=== PATIENT | female | born 1990 | race Caucasian/White ===

== ENCOUNTER 2017-01-30 15:00 | Emergency (ER) | payer BC, MEDICAID ==
--- NOTE | 2017-01-30 15:22 | Emergency Department Record ---
History of Present Illness - General Chief complaint: ENT Stated complaint: EAR PAIN Source: Patient Mode of Arrival: Ambulatory Limitations: No limitations - History of Present Illness Initial comments: 26 yo female presents to ED with a CC of right ear pain that began 4 days ago with a mild amount of discharge present from the ear. Patient denies fevers, chills, abdominal pain, or cough symptoms. Patient reports a history of previous ear infections. MD complaint: Ear pain Onset/Timin -: Days(s) Location: R ear Severity: Moderate Severity scale (1-10): 9 Quality: Burning, Sharp, Stabbing Consistency: Constant Improves with: None Worsens with: Swallowing Context- Ear: Other - Related Data Previous Rx's Medication Instructions Recorded Neomycin/Polymyxin B Sulf/Hc 10 ml OT QID #1 bottle 01/30/17 [[id number]-[id number]-Mz Ear Susp] Allergies Allergy/AdvReac Type Severity Reaction Status Date / Time azithromycin Allergy Intermediate VOMITING Verified 01/30/17 15:08 [From Zithromax Z-Ector] erythromycin base Allergy Intermediate NAUSEA AND Verified 01/30/17 15:08 [Erythromycin Base] VOMITING hydrocodone bitartrate Allergy Intermediate NAUSEA AND Verified 01/30/17 15:08 [From Vicodin] VOMITING Travel Screening - Travel/Exposure Within Last 30 Days Have you traveled within the last 30 days?: No - Travel/Exposure Within Last Year Have you traveled outside the [place] in the last year?: No - Additonal Travel Details Have you been exposed to anyone with a communicable illness?: No - Travel Symptoms Symptom Screening: None Review of Systems Constitutional: Denies: Chills, Fever, Malaise, Night sweats Eyes: Denies: Eye discharge, Eye pain ENT: Reports: Ear pain. Denies: Congestion, Epistaxis Respiratory: Denies: Cough, Dyspnea Cardiovascular: Denies: Chest pain, Dyspnea on exertion Endocrine: Denies: Fatigue, Heat or cold intolerance Gastrointestinal: Denies: Abdominal pain, Nausea, Vomiting Genitourinary: Denies: Dysuria, Frequency, Incontinence, Retention Musculoskeletal: Denies: Arthralgia, Back pain Skin: Denies: Bruising, Change in color, Change in hair/nails Neurological: Denies: Abnormal gait, Confusion, Headache, Seizure Psychiatric: Denies: Anxiety Hematological/Lymphatic: Denies: Anemia, Blood Clots Past Medical History - SOCIAL HISTORY Smoking Status: Light tobacco smoker (<10/day) Alcohol Use: None Drug Use: None - RESPIRATORY Hx Respiratory Disorders: Yes Hx Bronchitis: Yes - CARDIOVASCULAR Hx Cardio Disorders: No - NEURO Hx Neuro Disorders: No - GI Hx GI Disorders: No - Hx Genitourinary Disorders: No - ENDOCRINE Hx Endocrine Disorders: No - MUSCULOSKELETAL Hx Musculoskeletal Disorders: No - PSYCH Hx Psych Problems: No - HEMATOLOGY/ONCOLOGY Hx Hematology/Oncology Disorders: No Family Medical History Any Significant Family History?: Yes Hx Diabetes: Grandparents Hx HTN: Grandparents Physical Exam - General General Appearance: Alert, Oriented x3, Cooperative, No acute distress Limitations: No limitations - Head Head exam: Atraumatic, Normocephalic, Normal inspection Head exam detail: negative: Abrasion, Contusion, Tompkins's sign, General tenderness, Hematoma, Laceration - Eye Eye exam: Normal appearance. negative: Conjunctival injection, Periorbital swelling, Periorbital tenderness, Scleral icterus - ENT Ear exam: External canal tenderness, Other (erythema and mild swelling to the external canal right). negative: Auricular hematoma, Auricular trauma Nasal Exam: negative: Active bleeding, Discharge, Dried blood, Foreign body Mouth exam: negative: Drooling, Laceration, Muffled voice, Tongue elevation - Neck Neck exam: Normal inspection. negative: Meningismus, Tenderness - Respiratory Respiratory exam: Normal lung sounds bilaterally. negative: Rales, Respiratory distress, Rhonchi, Stridor - Cardiovascular Cardiovascular Exam: Regular rate, Normal rhythm, Normal heart sounds - GI/Abdominal GI/Abdominal exam: Soft. negative: Rebound, Rigid, Tenderness - Rectal Rectal exam: Deferred - exam: Deferred - Extremities Extremities exam: Normal inspection. negative: Calf tenderness, Pedal edema, Tenderness - Back Back exam: Reports: Normal inspection. Denies: CVA tenderness (R), CVA tenderness (L) - Neurological Neurological exam: Alert, Normal gait, Oriented X3 - Psychiatric Psychiatric exam: Normal affect, Normal mood - Skin Skin exam: Normal color. negative: Abrasion Type of lesion: negative: abrasion Course Vital Signs 01/30/17 15:09 Temperature 97.7 F Pulse Rate 108 H Respiratory 20 Rate Blood Pressure 124/69 Pulse Ox 100 - Reevaluation(s) Reevaluation #1: 01/30/17 15:20 Symptoms appear c/w otitis externa, will initiate polymyxin for her ear pain symptoms. Patient appears stable for discharge at this time. Disposition Disposition: Discharge Clinical Impression: Otitis externa Qualifiers: Otitis externa type: unspecified type Laterality: right Chronicity: acute Qualified Code(s): H60.501 - Unspecified acute noninfective otitis externa, right ear Disposition: Home, Self-Care Condition: (2) Stable Instructions: Otitis Externa (ED) Additional Instructions: Return to ED if your symptoms worsen or if you have any concerns. Polymyxin ear drops as directed. Follow-up with your family doctor in 3-5 days as directed. Prescriptions: Neomycin/Polymyxin B Sulf/Hc [Qacvtens-[id number]-Aa Ear Susp] 10 ml OT QID #1 bottle Forms: Patient Portal Access Time of Disposition: 15:22
== END 2017-01-30 15:33 | disposition home or self-care (01) ==
LOC: ER 15:00
DX: H60.501 Unspecified acute noninfective otitis externa, right ear (principal)
CPT/HCPCS: 99282

== ENCOUNTER 2017-04-13 19:43 | Emergency (ER) | payer MEDICAID ==
[2017-04-13] MEDS ORDERED: 0.9 % SODIUM CHLORIDE 1,000 ML BAG IV ONE (19:56)
[2017-04-13] MEDS ORDERED: CEFTRIAXONE SODIUM 1 GM in 0.9 % SODIUM CHLORIDE 100ML 100 ML IVPB ONE (20:00)
[2017-04-13] MEDS ORDERED: ACETAMINOPHEN 325 MG TAB PO ONE (20:00)
--- NOTE | 2017-04-13 20:06 | Emergency Department Record ---
History of Present Illness - General Chief Complaint: Ankle/Foot Injury Stated Complaint: PAIN IN FOOT AND LT LEG Time Seen by Provider: 04/13/17 19:51 Source: Patient Mode of Arrival: Ambulatory Limitations: No limitations - History of Present Illness Initial Comments: The patient is here due to L foot pain for 2 days. She recently just over a week ago had been to [facility] due to developing an abscess to the L great toe. She did have it I and D'd and originally was placed on Bactrim. She was later called and was told it was Group A Strep and had her Abx changed to Clindamycin which she has taken for almost 10 days. The toe got better and then 2 days ago the pain in the toe came back. Now she is having pain radiating up the foot to the ankle. She denies any trauma, injury, fever, CP, SOB, chills, or any new issues. MD Complaint: Other Onset/Timin -: Days(s) Type of Injury: Other Place: Home Severity: Mild Severity scale (1-10): 6 Improves With: NSAID, Rest Worsens With: Palpation, Weight bearing - Related Data Home Medications Medication Instructions Recorded Confirmed Last Taken Clindamycin HCl [Cleocin HCl] 04/13/17 Unknown Previous Rx's Medication Instructions Recorded Cephalexin [Keflex] 500 mg PO QID #28 cap 04/13/17 Allergies Allergy/AdvReac Type Severity Reaction Status Date / Time azithromycin Allergy Intermediate VOMITING Verified 01/30/17 15:08 [From Zithromax Z-Ector] erythromycin base Allergy Intermediate NAUSEA AND Verified 01/30/17 15:08 [Erythromycin Base] VOMITING hydrocodone bitartrate Allergy Intermediate NAUSEA AND Verified 01/30/17 15:08 [From Vicodin] VOMITING Travel Screening - Travel/Exposure Within Last 30 Days Have you traveled within the last 30 days?: No - Travel/Exposure Within Last Year Have you traveled outside the [place] in the last year?: No - Additonal Travel Details Have you been exposed to anyone with a communicable illness?: No - Travel Symptoms Symptom Screening: None Review of Systems Constitutional: Denies: Chills, Fever Eyes: Denies: Eye discharge ENT: Denies: Congestion Respiratory: Denies: Cough, Dyspnea Past Medical History - SOCIAL HISTORY Smoking Status: Light tobacco smoker (<10/day) Alcohol Use: None Drug Use: None - RESPIRATORY Hx Respiratory Disorders: Yes Hx Bronchitis: Yes - CARDIOVASCULAR Hx Cardio Disorders: No - NEURO Hx Neuro Disorders: No - GI Hx GI Disorders: No - Hx Genitourinary Disorders: No - ENDOCRINE Hx Endocrine Disorders: No - MUSCULOSKELETAL Hx Musculoskeletal Disorders: No - PSYCH Hx Psych Problems: No - HEMATOLOGY/ONCOLOGY Hx Hematology/Oncology Disorders: No Family Medical History Any Significant Family History?: No Hx Diabetes: Grandparents Hx HTN: Grandparents Physical Exam - General General Appearance: Alert, Oriented x3, Cooperative, No acute distress - Head Head exam: Atraumatic, Normocephalic, Normal inspection - Eye Eye exam: Normal appearance, PERRL - Neck Neck exam: Normal inspection - Respiratory Respiratory exam: Normal lung sounds bilaterally. negative: Respiratory distress - Cardiovascular Cardiovascular Exam: Regular rate, Normal rhythm, Normal heart sounds - Extremities Extremities exam: Normal capillary refill, Tenderness (only to the foot. There is no calf, posterior knee or thigh tenderness.). negative: Normal inspection ( There is a dried healing blister to the distal L 1st toe. There is no swelling or erythema to the foot, ankle or leg but mild tenderness dorsally to the foot. The L foot is NVI with normal pulses.), Calf tenderness, Joint swelling Course Vital Signs 04/13/17 19:50 Temperature 98.8 F Pulse Rate [ 119 H Pulse Ox Probe] Respiratory 20 Rate Blood Pressure 138/69 [Left Arm] Pulse Ox 98 - Reevaluation(s) Reevaluation #1: The patient is doing very well at this time. Her foot appears the same with no erythema, swelling, or warmth but there is tenderness dorsally. There is no calf or thigh tenderness and no signs of any DVT. On recheck her temp is normal at 98.9 and her xray is normal also. I did discuss the need to stop the Clindamycin and start Keflex. She is to return to ER at 9am tomorrow for repeat IV Abx and possibly a leg doppler test. 04/13/17 21:12 Medical Decision Making - Data Complexity MDM Data: Labs Ordered and/or Reviewed, X-Ray Ordered and/or Reviewed - Lab Data Result diagrams: 04/13/17 20:15 04/13/17 20:15 - Radiology Data Radiology results: Report reviewed (L Foot: Neg per Rad.), Image reviewed (L Foot: Neg) Disposition Disposition: Discharge Clinical Impression: Foot pain, left Disposition: Home, Self-Care Condition: (1) Good Instructions: Arthralgia (ED) Additional Instructions: Please ice and elevate the L foot tonight and use Tylenol or Motrin for pain. Please return to the ER at 9am for recheck and repeat Abx and possibly a doppler test. Please stop the Clindamycin and start the Keflex tomorrow. Prescriptions: Cephalexin [Keflex] 500 mg PO QID #28 cap Forms: Patient Portal Access Time of Disposition: 21:20
[2017-04-13 20:22] LABS: BASO % 0.8 % (0-6); EOS % 5.9 % (0-6); GRAN % 54.9 % (47-80); HEMOGLOBIN 14.8 gm/dl (11.6-16.0); LYMPH % 32.7 % (16-45); MEAN CELL VOLUME 86.9 fl (81-97); MEAN CORPUSCULAR HEMOGLOBIN 29.9 pg (27-33); MEAN CORPUSCULAR HGB CONC 34.4 g/dl (32-36); MEAN PLATELET VOLUME 9.1 fl (7.4-10.4); MONO % 5.7 % (0-9); PLATELET COUNT 335 K/uL (130-400); RED BLOOD COUNT 4.95 M/uL (3.80-5.40); RED CELL DISTRIBUTION WIDTH 12.2 % (11.5-14.5); WHITE BLOOD COUNT W/O DIFF 9.4 K/uL (4.2-12.2)
[2017-04-13 20:35] LABS: ANION GAP 10.9 (7-16); BLOOD UREA NITROGEN 11 mg/dL (7-17); CARBON DIOXIDE 25.1 mmol/L (22-30); CREATININE 0.8 mg/dL (0.52-1.04); EST GLOMERULAR FILTRATION RATE > 60 ml/min; GLUCOSE,RANDOM 125 mg/dL (70-110)
[2017-04-13 20:37] LABS: C-REACTIVE PROTEIN < 0.5 mg/dL (0.0-0.9)
[2017-04-13] MEDS ORDERED: ONDANSETRON HCL IV 4 MG/2 ML VIAL IVP ONE (21:09)
--- NOTE | 2017-04-15 10:52 | RADIOLOGY REPORT ---
EXAM: FOOT, LEFT 3 VIEWS HISTORY: PATIENT HAS PAIN TO THE LEFT FIRST DIGIT. TECHNIQUE: Three views of the left foot are provided without comparison study. FINDINGS: There is no radiographic evidence of a fracture or dislocation of the left foot. Mild soft tissue swelling is noted of the first digit. No radiopaque foreign bodies are identified. IMPRESSION: MILD SOFT TISSUE SWELLING IS NOTED OF THE LEFT FIRST DIGIT WITHOUT RADIOGRAPHIC EVIDENCE OF A FRACTURE OR DISLOCATION OF THE LEFT FOOT. JOB NUMBER: [id number] MTDD
== END 2017-04-13 21:30 | disposition home or self-care (01) ==
LOC: ER 19:43
DX: M79.672 Pain in left foot (principal)
CPT/HCPCS: 99284 ×2; 96374; 96375; 85025; 86140; 80048; 73630; J2405; J7030

== ENCOUNTER 2017-04-14 08:36 | Emergency (ER) | payer MEDICAID ==
[2017-04-14] MEDS ORDERED: CLINDAMYCIN 600MG/4ML VIAL 600 MG in 0.9 % SODIUM CHLORIDE 100ML 100 ML IV ONE (08:49)
--- NOTE | 2017-04-14 08:55 | Emergency Department Record ---
History of Present Illness - General Chief Complaint: Wound, check Stated Complaint: RECHECK Time Seen by Provider: 04/14/17 08:49 Source: Patient Mode of arrival: Ambulatory Limitations: No limitations - History of Present Illness Initial Comments: 26 yo female returns to ED fore repeat antibiotics after being seen last night. Patient was recently treated for a left great toe infection approximately 10 days ago, stopped Clindamycin 1-2 days ago when her pain symptoms returned. Patient reports that her toe pain is extending up the lower extremity posteriorly. Patient denies fevers, chills, or increased redness to the left great toe. Patient denies health problems at her baseline. MD Complaint: Needs IV antibiotics Onset/Timin -: Week(s) Initial Visit For: Abscess Returns Today for: Needs IV antibiotics, Wound recheck Symptoms Since Prior Visit: No new symptoms Associated Symptoms: None - Related Data Home Medications Medication Instructions Recorded Confirmed Last Taken Clindamycin HCl [Cleocin HCl] 1 tab PO TID 04/13/17 04/14/17 04/13/17 Previous Rx's Medication Instructions Recorded Cephalexin [Keflex] 500 mg PO QID #28 cap 04/13/17 Allergies Allergy/AdvReac Type Severity Reaction Status Date / Time azithromycin Allergy Intermediate VOMITING Verified 01/30/17 15:08 [From Zithromax Z-Ector] erythromycin base Allergy Intermediate NAUSEA AND Verified 01/30/17 15:08 [Erythromycin Base] VOMITING hydrocodone bitartrate Allergy Intermediate NAUSEA AND Verified 01/30/17 15:08 [From Vicodin] VOMITING Travel Screening - Travel/Exposure Within Last 30 Days Have you traveled within the last 30 days?: No - Travel/Exposure Within Last Year Have you traveled outside the [place] in the last year?: No - Additonal Travel Details Have you been exposed to anyone with a communicable illness?: No - Travel Symptoms Symptom Screening: None Review of Systems Constitutional: Denies: Chills, Fever, Malaise, Night sweats Eyes: Denies: Eye discharge, Eye pain ENT: Denies: Congestion, Ear pain, Epistaxis Respiratory: Denies: Cough, Dyspnea Cardiovascular: Denies: Chest pain, Dyspnea on exertion Endocrine: Denies: Fatigue, Heat or cold intolerance Gastrointestinal: Denies: Abdominal pain, Nausea, Vomiting Genitourinary: Denies: Incontinence, Retention Musculoskeletal: Reports: Arthralgia. Denies: Back pain, Gout Skin: Reports: Other (Wound to the left great toe). Denies: Bruising, Change in color Neurological: Denies: Abnormal gait, Confusion, Headache Psychiatric: Denies: Anxiety Hematological/Lymphatic: Denies: Anemia, Blood Clots Past Medical History - SOCIAL HISTORY Smoking Status: Light tobacco smoker (<10/day) Alcohol Use: None Drug Use: None - RESPIRATORY Hx Respiratory Disorders: Yes Hx Bronchitis: Yes - CARDIOVASCULAR Hx Cardio Disorders: No - NEURO Hx Neuro Disorders: No - GI Hx GI Disorders: No - Hx Genitourinary Disorders: No - ENDOCRINE Hx Endocrine Disorders: No - MUSCULOSKELETAL Hx Musculoskeletal Disorders: No - PSYCH Hx Psych Problems: No - HEMATOLOGY/ONCOLOGY Hx Hematology/Oncology Disorders: No Family Medical History Any Significant Family History?: No Hx Diabetes: Grandparents Hx HTN: Grandparents Physical Exam - General General Appearance: Alert, Oriented x3, Cooperative, No acute distress Limitations: No limitations - Head Head exam: Atraumatic, Normocephalic, Normal inspection Head exam detail: negative: Abrasion, Contusion, Tompkins's sign, General tenderness, Hematoma, Laceration - Eye Eye exam: Normal appearance. negative: Conjunctival injection, Periorbital swelling, Periorbital tenderness, Scleral icterus - ENT Ear exam: negative: Auricular hematoma, Auricular trauma Nasal Exam: Normal inspection. negative: Discharge, Dried blood, Foreign body Mouth exam: negative: Drooling, Laceration, Muffled voice, Tongue elevation - Neck Neck exam: Normal inspection. negative: Meningismus, Tenderness - Respiratory Respiratory exam: Normal lung sounds bilaterally. negative: Respiratory distress, Rhonchi, Stridor, Wheezes - Cardiovascular Cardiovascular Exam: Regular rate, Normal rhythm, Normal heart sounds - GI/Abdominal GI/Abdominal exam: Soft. negative: Rebound, Rigid, Tenderness - Rectal Rectal exam: Deferred - exam: Deferred - Extremities Extremities exam: Tenderness, Other (Healing wound to the left great toe, mild erythema to the toe nail proximally, no abscess present on examination). negative: Calf tenderness, Pedal edema - Back Back exam: Reports: Normal inspection. Denies: CVA tenderness (R), CVA tenderness (L) - Neurological Neurological exam: Alert, Normal gait, Oriented X3 - Psychiatric Psychiatric exam: Normal affect - Skin Skin exam: Normal color. negative: Abrasion Type of lesion: negative: abrasion Course Vital Signs 04/14/17 04/14/17 08:38 08:44 Temperature 99.0 F Pulse Rate [ 97 H Pulse Ox Probe] Respiratory 16 Rate Blood Pressure 109/64 [Right Arm] Pulse Ox 98 - Reevaluation(s) Reevaluation #1: 04/14/17 08:56 Labs reviewed from 04/12 and are grossly unremarkable for an acute process. Repeat IV antibiotics and lower extremity Doppler ordered to exclude lower extremity thrombus. Reevaluation #2: 04/14/17 09:58 Repeat antibiotics have infused, and lower extremity Doppler is negative. Patient appears stable for discharge at this time. Keflex we sent to pharmacy last night for the patient to fill this morning as well. Patient was updated on all results and appears stable for discharge at this time. Disposition Disposition: Discharge Clinical Impression: Cellulitis of great toe of left foot Disposition: Home, Self-Care Condition: (2) Stable Instructions: Cellulitis (ED) Additional Instructions: Return to ED if your symptoms worsen or if you have any concerns. Follow-up with your family doctor in 3-5 days as directed. Keflex as previously prescribed. Forms: Patient Portal Access Time of Disposition: 10:00
--- NOTE | 2017-04-15 11:07 | US VENOUS DOPPLER REPORT ---
EXAM: ULTRASOUND VENOUS DOPPLER LOWER EXT LT HISTORY: LEFT LOWER EXTREMITY PAIN FOR THREE WEEKS. TECHNIQUE: Real-time hughes-scale sonographic imaging of the left lower extremity deep venous system was performed with duplex Doppler and spectral waveform analysis. COMPARISON: None. FINDINGS: There is normal color-flow and compressibility in the following vessels; left greater saphenous vein, left common femoral vein, left profunda femoral vein, left superficial femoral vein, left popliteal vein, left peroneal vein, left anterior tibial vein, left posterior tibial vein. Normal respiratory phasicity in the left common femoral vein. IMPRESSION: NO EVIDENCE OF LEFT LOWER EXTREMITY DVT. JOB NUMBER: [id number] MTDD
== END 2017-04-14 10:14 | disposition home or self-care (01) ==
LOC: ER 08:36
DX: L03.032 Cellulitis of left toe (principal)
CPT/HCPCS: 96365; 99283

== ENCOUNTER 2017-07-30 18:05 | Emergency (ER) | payer MEDICAID ==
[2017-07-30] MEDS ORDERED: PREDNISONE 20 MG TAB PO ONE (18:21)
--- NOTE | 2017-07-30 18:22 | Emergency Department Record ---
History of Present Illness - General Chief complaint: ENT Stated complaint: SORE THROAT/BAD COUGH Time Seen by Provider: 07/30/17 18:20 Source: Patient Mode of Arrival: Ambulatory Limitations: No limitations - History of Present Illness Initial comments: 26 yo female presents to ED with a CC of recurrent sore throat and non- productive cough symptoms. Patient reports that she was recently treated for strep pharyngitis 2 weeks ago, had been doing well until today. Patient reports numerous ill-contacts at home with similar symptoms. Patient denies fevers, chills, or health problems at her baseline. MD complaint: Sore throat, Other (cough) Onset/Timin -: Hour(s) Location: Throat Severity: Moderate Consistency: Constant Improves with: None Worsens with: None Associated Symptoms: Cough, Pain with swallowing, Sore throat - Related Data Previous Rx's Medication Instructions Recorded Prednisone [Prednisone 20Mg] 20 mg PO TID #12 tab 07/30/17 Allergies Allergy/AdvReac Type Severity Reaction Status Date / Time azithromycin Allergy Intermediate VOMITING Unverified 06/15/17 10:21 [From Zithromax Z-Ector] erythromycin base Allergy Intermediate NAUSEA AND Unverified 06/15/17 10:21 [Erythromycin Base] VOMITING hydrocodone bitartrate Allergy Intermediate NAUSEA AND Unverified 06/15/17 10:21 [From Vicodin] VOMITING Travel Screening - Travel/Exposure Within Last 30 Days Have you traveled within the last 30 days?: No - Travel/Exposure Within Last Year Have you traveled outside the [place] in the last year?: No - Additonal Travel Details Have you been exposed to anyone with a communicable illness?: No - Travel Symptoms Symptom Screening: None Review of Systems Constitutional: Denies: Chills, Fever, Malaise, Night sweats Eyes: Denies: Eye discharge, Eye pain ENT: Reports: Congestion, Throat pain. Denies: Ear pain, Epistaxis Respiratory: Reports: Cough. Denies: Dyspnea, Hemoptysis Cardiovascular: Denies: Chest pain, Dyspnea on exertion, Palpitations Endocrine: Denies: Fatigue, Heat or cold intolerance Gastrointestinal: Denies: Constipation, Diarrhea, Vomiting Genitourinary: Denies: Incontinence, Retention Musculoskeletal: Denies: Arthralgia, Back pain Skin: Denies: Bruising, Change in color Neurological: Denies: Abnormal gait, Confusion, Headache, Seizure Psychiatric: Denies: Anxiety Hematological/Lymphatic: Denies: Anemia, Blood Clots Past Medical History - SOCIAL HISTORY Smoking Status: Light tobacco smoker (<10/day) Alcohol Use: None Drug Use: None - RESPIRATORY Hx Respiratory Disorders: Yes Hx Bronchitis: Yes - CARDIOVASCULAR Hx Cardio Disorders: No - NEURO Hx Neuro Disorders: No - GI Hx GI Disorders: No - Hx Genitourinary Disorders: No - ENDOCRINE Hx Endocrine Disorders: No - MUSCULOSKELETAL Hx Musculoskeletal Disorders: No - PSYCH Hx Psych Problems: No - HEMATOLOGY/ONCOLOGY Hx Hematology/Oncology Disorders: No Family Medical History Any Significant Family History?: No Hx Diabetes: Grandparents Hx HTN: Grandparents Physical Exam - General General Appearance: Alert, Oriented x3, Cooperative, No acute distress Limitations: No limitations - Head Head exam: Atraumatic, Normocephalic, Normal inspection Head exam detail: negative: Abrasion, Contusion, Tompkins's sign, General tenderness, Hematoma, Laceration - Eye Eye exam: Normal appearance. negative: Conjunctival injection, Periorbital swelling, Periorbital tenderness, Scleral icterus - ENT Ear exam: negative: Auricular hematoma, Auricular trauma Nasal Exam: negative: Active bleeding, Discharge, Dried blood, Foreign body Mouth exam: negative: Drooling, Laceration, Muffled voice, Tongue elevation Throat exam: Normal inspection. negative: Tonsillar erythema, Tonsillomegaly, Tonsillar exudate, R peritonsillar mass, L peritonsillar mass - Neck Neck exam: Normal inspection. negative: Meningismus, Tenderness - Respiratory Respiratory exam: Normal lung sounds bilaterally. negative: Rales, Respiratory distress, Rhonchi, Stridor - Cardiovascular Cardiovascular Exam: Regular rate, Normal rhythm, Normal heart sounds - GI/Abdominal GI/Abdominal exam: Soft. negative: Rebound, Rigid, Tenderness - Rectal Rectal exam: Deferred - exam: Deferred - Extremities Extremities exam: Normal inspection. negative: Calf tenderness, Pedal edema, Tenderness - Back Back exam: Denies: CVA tenderness (R), CVA tenderness (L) - Neurological Neurological exam: Alert, Normal gait, Oriented X3 - Psychiatric Psychiatric exam: Normal affect, Normal mood - Skin Skin exam: Normal color. negative: Abrasion Type of lesion: negative: abrasion Course Vital Signs 07/30/17 18:08 Temperature 98.3 F Pulse Rate 122 H Respiratory 18 Rate Blood Pressure 108/85 Pulse Ox 97 - Reevaluation(s) Reevaluation #1: 07/30/17 18:25 Lungs are clear on examination, pharynx appears normal. Patient reports several other ill-contacts at home, etiology is likely viral. Repeat pulse is 109 (down from initial 122). Will treat with Prednisone as directed for 5 days for likely viral bronchitis. Patient is otherwiwse well appearing without evidence for recurrent bacterial infection, and appears stable for discharge at this time. Disposition Disposition: Discharge Clinical Impression: Acute bronchitis Qualifiers: Bronchitis organism: unspecified organism Qualified Code(s): J20.9 - Acute bronchitis, unspecified Disposition: Home, Self-Care Condition: (2) Stable Instructions: Acute Bronchitis (ED) Additional Instructions: Return to ED if your symptoms worsen or if you have any concerns. Prednisone as directed. Follow-up with your family doctor in 3-5 days as directed. Prescriptions: Prednisone [Prednisone 20Mg] 20 mg PO TID #12 tab Forms: Patient Portal Access Time of Disposition: 18:22 Quality - Quality Measures Quality Measures: N/A - Blood Pressure Screening Does Patient Have Any of the Following: No Blood Pressure Classification: Pre-Hypertensive BP Reading Systolic Measurement: 108 Diastolic Measurement: 85 Screening for High Blood Pressure: < Pre-Hypertensive BP, F/U Documented > [ [id number]] Pre-Hypertensive Follow-up Interventions: Referral to alternative/primary care provider.
== END 2017-07-30 18:36 | disposition home or self-care (01) ==
LOC: ER 18:05
DX: J20.9 Acute bronchitis, unspecified (principal); J02.9 Acute pharyngitis, unspecified; F17.210 Nicotine dependence, cigarettes, uncomplicated
CPT/HCPCS: 99282; J7512

== ENCOUNTER 2018-04-30 20:03 | Emergency (ER) | payer MEDICAID ==
[2018-04-30 20:28] LABS: BASO % 0.6 % (0-6); EOS % 3.6 % (0-6); GRAN % 65.3 % (47-80); HEMATOCRIT 44.4 % (35.0-47.0); HEMOGLOBIN 15.9 gm/dl (11.6-16.0); LYMPH % 21.7 % (16-45); MEAN CELL VOLUME 86.7 fl (81-97); MEAN CORPUSCULAR HEMOGLOBIN 31.1 pg (27-33); MEAN CORPUSCULAR HGB CONC 35.8 g/dl (32-36); MEAN PLATELET VOLUME 8.9 fl (7.4-10.4); MONO % 8.8 % (0-9); PLATELET COUNT 392 K/uL (130-400); RED BLOOD COUNT 5.12 M/uL (3.80-5.40); RED CELL DISTRIBUTION WIDTH 12.2 % (11.5-14.5); WHITE BLOOD COUNT W/O DIFF 13.5 K/uL (4.2-12.2)
[2018-04-30] MEDS ORDERED: HYDROMORPHONE HCL 2 MG/ML VIAL IVP ONE (20:31)
[2018-04-30] MEDS ORDERED: ONDANSETRON HCL IV 4 MG/2 ML VIAL IVP ONE ×2 (20:31→21:45)
[2018-04-30] MEDS ORDERED: 0.9 % SODIUM CHLORIDE 1,000 ML BAG IV ONE (20:35)
[2018-04-30 20:41] LABS: BLOOD UREA NITROGEN 12 mg/dL (6-20); CREATININE 0.7 mg/dL (0.5-0.9); EST GLOMERULAR FILTRATION RATE > 60 mL/min
[2018-04-30 20:42] LABS: TOTAL PROTEIN 7.4 g/dL (6.6-8.7)
[2018-04-30] MEDS ORDERED: LORAZEPAM 2 MG/ML VIAL IV ONE (20:42)
[2018-04-30 20:44] LABS: GLUCOSE,RANDOM 107 mg/dL (74-109)
[2018-04-30 20:46] LABS: ALB/GLOB RATIO 2.2 (1.1-1.8); ALBUMIN 5.1 g/dL (4.0-5.0); ALKALINE PHOSPHATASE 52 U/L (35-104); ALT/SGPT 24 U/L (<33); AST/SGOT 20 U/L (10.0-35.0)
[2018-04-30 21:18] LABS: HCG,QUALITATIVE URINE NEGATIVE (NEGATIVE)
[2018-04-30 21:19] LABS: URINE APPEARANCE CLEAR; URINE BILIRUBIN NEGATIVE (NEGATIVE); URINE BLOOD NEGATIVE (NEGATIVE); URINE COLOR YELLOW; URINE GLUCOSE (UA) NEGATIVE (NEGATIVE); URINE KETONE NEGATIVE (NEGATIVE); URINE LEUKOCYTE ESTERASE NEGATIVE (NEGATIVE); URINE NITRITE NEGATIVE (NEGATIVE); URINE PROTEIN NEGATIVE (NEGATIVE); URINE UROBILINOGEN 0.2 E.U./dL (0.20 - 1.00)
[2018-04-30] MEDS ORDERED: ONDANSETRON 4 MG ODT TABLET SL ONE (22:55)
[2018-04-30] MEDS ORDERED: HYDROCODONE/APAP 5/325MG TABLET PO ONE (22:55)
--- NOTE | 2018-04-30 23:05 | Emergency Department Record ---
History of Present Illness - General Chief Complaint: Abdominal Pain Stated Complaint: RT SIDE PAIN Time Seen by Provider: 04/30/18 20:30 Source: Patient Mode of Arrival: Ambulatory Limitations: No limitations - History of Present Illness Initial Comments: pt came in c/o of severe r ap w vomiting and diarrhea for hours MD Complaint: Abdominal pain Onset/Timin -: Hour(s) Location: RUQ Migration to: RUQ Severity scale (1-10): 10 Quality: Sharp, Stabbing Consistency: Constant Improves With: Nothing Worsens With: Nothing Associated Symptoms: Diarrhea, Nausea, Vomiting - Related Data Patient : No Allergies Allergy/AdvReac Type Severity Reaction Status Date / Time azithromycin Allergy Intermediate VOMITING Unverified 01/24/18 10:24 [From Zithromax Z-Ector] erythromycin base Allergy Intermediate NAUSEA AND Unverified 01/24/18 10:24 [Erythromycin Base] VOMITING hydrocodone bitartrate Allergy Intermediate NAUSEA AND Unverified 01/24/18 10:24 [From Vicodin] VOMITING Travel Screening - Travel/Exposure Within Last 30 Days Have you traveled within the last 30 days?: No Review of Systems Reviewed: No additional complaints except as noted below Constitutional: Reports: As per HPI. Denies: Chills, Fever, Malaise, Night sweats, Weakness, Weight change Eyes: Reports: As per HPI. Denies: Eye discharge, Eye pain, Photophobia, Vision change ENT: Reports: As per HPI. Denies: Congestion, Dental pain, Ear pain, Epistaxis , Hearing loss, Throat pain Respiratory: Reports: As per HPI. Denies: Cough, Dyspnea, Hemoptysis, Stridor, Wheezes Cardiovascular: Reports: As per HPI. Denies: Arrhythmia, Chest pain, Dyspnea on exertion, Edema, Murmurs, Orthopnea, Palpitations, Paroxysmal nocturnal dyspnea, Rheumatic Fever, Syncope Endocrine: Reports: As per HPI. Denies: Fatigue, Heat or cold intolerance, Polydipsia, Polyuria Gastrointestinal: Reports: As per HPI, Abdominal pain, Diarrhea, Nausea, Vomiting. Denies: Constipation, Hematemesis, Hematochezia, Melena Genitourinary: Reports: As per HPI. Denies: Abnormal menses, Discharge, Dyspareunia, Dysuria, Frequency, Hematuria, Incontinence, Retention, Urgency Musculoskeletal: Reports: As per HPI. Denies: Arthralgia, Back pain, Gout, Joint swelling, Myalgia, Neck pain Skin: Reports: As per HPI. Denies: Bruising, Change in color, Change in hair/ nails, Lesions, Pruritus, Rash Neurological: Reports: As per HPI. Denies: Abnormal gait, Confusion, Headache, Numbness, Paresthesias, Seizure, Tingling, Tremors, Vertigo, Weakness Psychiatric: Reports: As per HPI. Denies: Anxiety, Auditory hallucinations, Depression, Homicidal thoughts, Suicidal thoughts, Visual hallucinations Hematological/Lymphatic: Reports: As per HPI. Denies: Anemia, Blood Clots, Easy bleeding, Easy bruising, Swollen glands Past Medical History - SOCIAL HISTORY Smoking Status: Light tobacco smoker (<10/day) Alcohol Use: None Drug Use: None - RESPIRATORY Hx Respiratory Disorders: Yes Hx Bronchitis: Yes - CARDIOVASCULAR Hx Cardio Disorders: No - NEURO Hx Neuro Disorders: No - GI Hx GI Disorders: No - Hx Genitourinary Disorders: No - ENDOCRINE Hx Endocrine Disorders: No - MUSCULOSKELETAL Hx Musculoskeletal Disorders: No - PSYCH Hx Psych Problems: No - HEMATOLOGY/ONCOLOGY Hx Hematology/Oncology Disorders: No Family Medical History Any Significant Family History?: Yes Hx Diabetes: Grandparents Hx HTN: Grandparents Physical Exam - General General Appearance: Alert, Oriented x3, Cooperative, Moderate distress, Other ( huperventilating) - Head Head exam: Normal inspection - Eye Eye exam: Normal appearance, PERRL, EOMI Pupils: Normal accommodation - ENT ENT exam: Normal exam, Mucous membranes moist, Normal external ear exam, Normal orophraynx Ear exam: Normal external inspection. negative: External canal tenderness Nasal Exam: Normal inspection. negative: Discharge, Sinus tenderness Mouth exam: Normal external inspection, Tongue normal Teeth exam: Normal inspection. negative: Dental caries Throat exam: Normal inspection. negative: Tonsillar erythema, Tonsillar exudate - Neck Neck exam: Normal inspection, Full ROM. negative: Tenderness - Respiratory Respiratory exam: Normal lung sounds bilaterally, Other (hyperventilating). negative: Respiratory distress - Cardiovascular Cardiovascular Exam: Normal rhythm, Normal heart sounds, Tachycardia - GI/Abdominal GI/Abdominal exam: Soft, Normal bowel sounds, Tenderness (ruq and rlq) - Rectal Rectal exam: Deferred - exam: Deferred - Extremities Extremities exam: Normal inspection, Full ROM, Normal capillary refill. negative: Tenderness - Back Back exam: Reports: Normal inspection, Full ROM. Denies: Muscle spasm, Rash noted, Tenderness - Neurological Neurological exam: Alert, CN II-XII intact, Normal gait, Oriented X3 - Psychiatric Psychiatric exam: Normal affect, Normal mood - Skin Skin exam: Dry, Intact, Normal color, Warm Course Vital Signs 04/30/18 20:13 Temperature 99.1 F Pulse Rate 145 H Respiratory 20 Rate Blood Pressure 148/114 Pulse Ox 96 - Reevaluation(s) Reevaluation #1: 04/30/18 23:02 pt is feeling better. she is resting. her hr is down to105. she still has some ruq discomfort. ct is neg. pt advised to return in am if still having ap for reeval and possible us of gb. Medical Decision Making - Lab Data Result diagrams: 04/30/18 20:20 04/30/18 20:20 Lab Results 04/30/18 04/30/18 04/30/18 Range/Units 20:20 20:20 20:20 WBC 13.5 H (4.2-12.2) K/uL RBC 5.12 (3.80-5.40) M/uL Hgb 15.9 (11.6-16.0) gm/dl Hct 44.4 (35.0-47.0) % MCV 86.7 (81-97) fl MCH 31.1 (27-33) pg MCHC 35.8 (32-36) g/dl RDW 12.2 (11.5-14.5) % Plt Count 392 (130-400) K/uL MPV 8.9 (7.4-10.4) fl Gran % 65.3 (47-80) % Lymphocytes % 21.7 (16-45) % Monocytes % 8.8 (0-9) % Eosinophils % 3.6 (0-6) % Basophils % 0.6 (0-6) % Sodium 140 (136-145) mmol/L Potassium 4.0 (3.4-4.5) mmol/L Chloride 101 (98-107) mmol/L Carbon Dioxide 21.0 L (22-29) mmol/L Anion Gap 18.0 H (7-16) BUN 12 (6-20) mg/dL Creatinine 0.7 (0.5-0.9) mg/dL Estimated GFR > 60 mL/min Random Glucose 107 (74-109) mg/dL Calcium 10.6 H (8.6-10.0) mg/dL Total Bilirubin 0.30 (0.2-1.0) mg/dL AST 20 (10.0-35.0) U/L ALT 24 (<33) U/L Alkaline Phosphatase 52 (35-104) U/L Total Protein 7.4 (6.6-8.7) g/dL Albumin 5.1 H (4.0-5.0) g/dL Globulin 2.3 (1.4-4.8) gm/dL Albumin/Globulin Ratio 2.2 H (1.1-1.8) Lipase 31 (13-60) U/L Urine Color Urine Appearance Urine pH (5.0-8.0) Ur Specific [place] (1.002-1.030) Urine Protein (NEGATIVE) Urine Glucose (UA) (NEGATIVE) Urine Ketones (NEGATIVE) Urine Blood (NEGATIVE) Urine Nitrite (NEGATIVE) Urine Bilirubin (NEGATIVE) Urine Urobilinogen (0.20 - 1.00) E.U./dL Ur Leukocyte Esterase (NEGATIVE) Urine HCG, Qual (NEGATIVE) 04/30/18 Range/Units 21:17 WBC (4.2-12.2) K/uL RBC (3.80-5.40) M/uL Hgb (11.6-16.0) gm/dl Hct (35.0-47.0) % MCV (81-97) fl MCH (27-33) pg MCHC (32-36) g/dl RDW (11.5-14.5) % Plt Count (130-400) K/uL MPV (7.4-10.4) fl Gran % (47-80) % Lymphocytes % (16-45) % Monocytes % (0-9) % Eosinophils % (0-6) % Basophils % (0-6) % Sodium (136-145) mmol/L Potassium (3.4-4.5) mmol/L Chloride (98-107) mmol/L Carbon Dioxide (22-29) mmol/L Anion Gap (7-16) BUN (6-20) mg/dL Creatinine (0.5-0.9) mg/dL Estimated GFR mL/min Random Glucose (74-109) mg/dL Calcium (8.6-10.0) mg/dL Total Bilirubin (0.2-1.0) mg/dL AST (10.0-35.0) U/L ALT (<33) U/L Alkaline Phosphatase (35-104) U/L Total Protein (6.6-8.7) g/dL Albumin (4.0-5.0) g/dL Globulin (1.4-4.8) gm/dL Albumin/Globulin Ratio (1.1-1.8) Lipase (13-60) U/L Urine Color Yellow Urine Appearance Clear Urine pH 8.5 (5.0-8.0) Ur Specific [place] 1.020 (1.002-1.030) Urine Protein Negative (NEGATIVE) Urine Glucose (UA) Negative (NEGATIVE) Urine Ketones Negative (NEGATIVE) Urine Blood Negative (NEGATIVE) Urine Nitrite Negative (NEGATIVE) Urine Bilirubin Negative (NEGATIVE) Urine Urobilinogen 0.2 (0.20 - 1.00) E.U./dL Ur Leukocyte Esterase Negative (NEGATIVE) Urine HCG, Qual Negative (NEGATIVE) Disposition Disposition: Discharge Clinical Impression: RUQ abdominal pain Disposition: Home, Self-Care Condition: (1) Good Instructions: Abdominal Pain (ED) Additional Instructions: if still having abdominal pain in the morning return for reevaluation and possible ultrasound. liquid only till am. return sooner if worst. Quality - Quality Measures Quality Measures: N/A - Blood Pressure Screening Does Patient Have Any of the Following: No Blood Pressure Classification: Hypertensive Reading Systolic Measurement: 148 Diastolic Measurement: 114 Screening for High Blood Pressure: < First Hypertensive BP, F/U Documented > [ G8950] First Hypertensive Follow-up Interventions: Follow-up with rescreen GT 1 day and LT 4 weeks.
[2018-04-30] MEDS ORDERED: PROMETHAZINE HCL 25 MG SUPP RC ONE (23:46)
--- NOTE | 2018-05-01 10:23 | CT SCAN REPORT ---
EXAM: CT OF THE ABDOMEN AND PELVIS WITHOUT CONTRAST HISTORY: GENERALIZED ABDOMINAL PAIN WITH VOMITING FOR FIVE DAYS. TECHNIQUE: Helical CT examination of the abdomen and pelvis was performed without oral or intravenous contrast administration. Lack of oral and IV contrast utilization limits evaluation of the bowel and solid viscera respectively. Comparison: Two view radiographic examination of the abdomen dated 05/11/17. CT of the abdomen and pelvis with contrast dated 11/22/10. FINDINGS: Minor patchy opacities in the dependent lung bases identified consistent with atelectasis. Infiltrate unlikely. The lung bases are otherwise clear and there is no pleural or pericardial effusion. The heart is not enlarged. The liver, spleen, pancreas, adrenal glands and kidneys are normal in appearance. The gallbladder is unremarkable and no biliary ductal dilatation is seen. No intraabdominal nor retroperitoneal lymphadenopathy. The vasculature as visualized is unremarkable. The uterus is slightly tilted rightward. An intrauterine contraceptive device is in place appearing satisfactory in position. The ovaries are not enlarged. There is trace free fluid in the cul-de-sac. This is nonspecific, but likely physiologic. No pelvic mass nor adenopathy. No gross bowel dilatation nor bowel wall thickening is seen. The appendix is visualized and normal in appearance. The abdominal wall is intact. No lytic or blastic bone lesion is seen. IMPRESSION: 1. NO DEFINITE CT EVIDENCE OF AN ACUTE INTRAABDOMINAL NOR INTRAPELVIC PROCESS. 2. TRACE FREE FLUID IN THE CUL-DE-SAC IS NONSPECIFIC THOUGH LIKELY PHYSIOLOGIC. 3. INTRAUTERINE CONTRACEPTIVE DEVICE IN PLACE APPEARING SATISFACTORY IN POSITION. 4. NORMAL APPENDIX. JOB NUMBER: [id number] AND [id number] [facility]
== END 2018-04-30 23:48 | disposition home or self-care (01) ==
LOC: ER 20:03
DX: R10.11 Right upper quadrant pain (principal); R11.2 Nausea with vomiting, unspecified; R19.7 Diarrhea, unspecified; F17.210 Nicotine dependence, cigarettes, uncomplicated
CPT/HCPCS: 99284 ×2; 96376; 96374; 96375; 96361; 83690; 85025; 80053; 81003; 81025; 74176; J2405; J1170; J2060; J7030

== ENCOUNTER 2018-05-01 06:52 | Emergency (ER) | payer MEDICAID ==
--- NOTE | 2018-05-01 07:02 | Emergency Department Record ---
History of Present Illness - General Chief Complaint: Recheck - Other Stated Complaint: ULTRASOUND Time Seen by Provider: 05/01/18 06:57 Source: Patient Mode of arrival: Ambulatory Limitations: No limitations - History of Present Illness Initial Comments: The patient is here for recheck of her RUQ AP. She was in the ER last evening for the same issues which have been present for a day. Her workup was neg last night including a CT scan. She states the pain is not improved so she is now here for an US. The patient denies any new symptoms. MD Complaint: Other Onset/Timin -: Days(s) Initial Visit For: Other Returns Today for: Other Symptoms Since Prior Visit: No new symptoms Associated Symptoms: None - Related Data Previous Rx's Medication Instructions Recorded Acetaminop W/ Codeine 300/30Mg 1 tab PO Q4H #12 tab 05/01/18 [Tylenol #3] Ondansetron [Zofran Odt] 4 mg SL .Q4-6H PRN #12 tab.rapdis 05/01/18 Allergies Allergy/AdvReac Type Severity Reaction Status Date / Time azithromycin Allergy Intermediate VOMITING Unverified 01/24/18 10:24 [From Zithromax Z-Ector] erythromycin base Allergy Intermediate NAUSEA AND Unverified 01/24/18 10:24 [Erythromycin Base] VOMITING hydrocodone bitartrate Allergy Intermediate NAUSEA AND Unverified 01/24/18 10:24 [From Vicodin] VOMITING Travel Screening - Travel/Exposure Within Last 30 Days Have you traveled within the last 30 days?: No Review of Systems Constitutional: Denies: Chills, Fever Eyes: Denies: Eye discharge ENT: Denies: Congestion Respiratory: Denies: Cough, Dyspnea Past Medical History - SOCIAL HISTORY Smoking Status: Light tobacco smoker (<10/day) Alcohol Use: None Drug Use: None - RESPIRATORY Hx Respiratory Disorders: Yes Hx Bronchitis: Yes - CARDIOVASCULAR Hx Cardio Disorders: No - NEURO Hx Neuro Disorders: No - GI Hx GI Disorders: No - Hx Genitourinary Disorders: No - ENDOCRINE Hx Endocrine Disorders: No - MUSCULOSKELETAL Hx Musculoskeletal Disorders: No - PSYCH Hx Psych Problems: No - HEMATOLOGY/ONCOLOGY Hx Hematology/Oncology Disorders: No Family Medical History Any Significant Family History?: Yes Hx Diabetes: Grandparents Hx HTN: Grandparents Physical Exam - General General Appearance: Alert, Oriented x3, Cooperative, Mild distress (due to AP.) - Head Head exam: Atraumatic, Normocephalic - Eye Eye exam: Normal appearance, PERRL - Neck Neck exam: Normal inspection, Full ROM. negative: Tenderness - Respiratory Respiratory exam: Normal lung sounds bilaterally. negative: Respiratory distress - Cardiovascular Cardiovascular Exam: Regular rate, Normal rhythm, Normal heart sounds - GI/Abdominal GI/Abdominal exam: Soft, Tenderness (There is signficant RUQ tenderness.). negative: Rebound, Rigid - Extremities Extremities exam: Normal inspection, Full ROM, Normal capillary refill. negative: Tenderness Course Vital Signs 05/01/18 07:01 Temperature 97.9 F Pulse Rate [ 111 H Pulse Ox Probe] Respiratory 20 Rate Blood Pressure 107/80 [Left Arm] Pulse Ox 97 - Reevaluation(s) Reevaluation #1: The patient is doing better at this time. She is still having some pain but it is improved. On exam she still does have mild RUQ tenderness. Due to the fact the pain could be her GB I did discuss the case with Dr. Borja and he did see the patient in the ER. He will take her to surgery tomorrow. 05/01/18 09:25 Medical Decision Making - Data Complexity MDM Data: Labs Ordered and/or Reviewed, X-Ray Ordered and/or Reviewed - Lab Data Result diagrams: 05/01/18 08:03 - Radiology Data Radiology results: Report reviewed (US: Slight dependent sludge in the dependent GB. Neg edema or pericholycystic fluid.) Disposition Disposition: Discharge Clinical Impression: Biliary colic symptom Disposition: Home, Self-Care Condition: (2) Stable Instructions: Biliary Colic (ED) Additional Instructions: Please plan on surgery tomorrow as directed by Dr. Borja. DO NOT EAT past midnight tonight. Use the Zofran and [place] as needed. Prescriptions: Acetaminop W/ Codeine 300/30Mg [Tylenol #3] 1 tab PO Q4H #12 tab Ondansetron [Zofran Odt] 4 mg SL .Q4-6H PRN #12 tab.rapdis PRN Reason: Nausea Forms: Patient Portal Access Time of Disposition: 09:31 Quality - Quality Measures Quality Measures: N/A - Blood Pressure Screening View Details: Yes Does Patient Have Any of the Following: No Blood Pressure Classification: Normal BP Reading Systolic Measurement: 110 Diastolic Measurement: 73 Screening for High Blood Pressure: < Normal BP, F/U Not Required > [G8778]
[2018-05-01] MEDS ORDERED: KETOROLAC 30 MG/ML VIAL IM ONE (07:56)
[2018-05-01 08:14] LABS: BASO % 0.4 % (0-6); EOS % 2.2 % (0-6); GRAN % 70.7 % (47-80); HEMATOCRIT 39.9 % (35.0-47.0); HEMOGLOBIN 13.7 gm/dl (11.6-16.0); MEAN CELL VOLUME 89.3 fl (81-97); MEAN CORPUSCULAR HEMOGLOBIN 30.6 pg (27-33); MEAN CORPUSCULAR HGB CONC 34.3 g/dl (32-36); MONO % 8.7 % (0-9); PLATELET COUNT 285 K/uL (130-400); RED BLOOD COUNT 4.47 M/uL (3.80-5.40); RED CELL DISTRIBUTION WIDTH 12.1 % (11.5-14.5); WHITE BLOOD COUNT W/O DIFF 10.7 K/uL (4.2-12.2)
--- NOTE | 2018-05-01 10:29 | ULTRASOUND REPORT ---
EXAM: ULTRASOUND OF THE ABDOMEN COMPLETE HISTORY: ABDOMINAL PAIN. TECHNIQUE: Routine ultrasound examination of the abdomen was performed. Comparison: CT of the abdomen and pelvis without contrast dated 04/30/18. FINDINGS: The pancreatic head and tail are obscured by overlying bowel gas. The remainder of the pancreas is visualized and without focal abnormality. The abdominal aorta is without aneurysmal dilatation. The inferior vena cava is patent. The liver is homogeneous in echotexture. No hepatic mass. No gross intra or extrahepatic biliary ductal dilatation with the common hepatic duct measuring 3 mm in diameter. There is a small amount of sludge versus tiny dependent gallstones, mobile. No gross gallbladder wall thickening or pericholecystic fluid though a positive sonographic Pulido's sign is reported. The spleen is not enlarged and homogeneous in echotexture. Screening evaluation of the kidneys does not demonstrate hydronephrosis nor mass with the right kidney measuring 10 cm in length and the left kidney measuring 10.7 cm in length. IMPRESSION: 1. MINOR SLUDGE VERSUS TINY GALLSTONES. NO GALLBLADDER WALL THICKENING OR PERICHOLECYSTIC FLUID THOUGH A POSITIVE SONOGRAPHIC PULIDO'S SIGN IS REPORTED AND ACUTE CHOLECYSTITIS CANNOT BE EXCLUDED. 2. NO BILIARY DUCTAL DILATATION. 3. NONVISUALIZATION OF THE PANCREATIC HEAD AND TAIL DUE TO OVERLYING BOWEL GAS. J[facility]BER: [id number] [facility]
== END 2018-05-01 09:46 | disposition home or self-care (01) ==
LOC: ER 06:52
DX: K80.50 Calculus of bile duct without cholangitis or cholecystitis without obstruction (principal); F17.210 Nicotine dependence, cigarettes, uncomplicated
CPT/HCPCS: 76700; 85025; 96372; 99283; 99284; J1885